=== PATIENT | female | born 1970 | race Caucasian/White ===

== ENCOUNTER 2017-05-06 12:13 | Emergency (ER) | payer BC ==
--- OUTSIDE RECORDS SUMMARY | 2017-05-06 12:18 | XMS REPORT | Clinical Summary ---
:1970 Author Organization [facility] Address [address] [place] [address] Care Team Providers Name Role Phone Anais Nelson MD Primary Care Provider Allergies No Known Allergies Current Medications Prescription Sig. Disp. Refills Start Date End Date Status metFORMIN (GLUCOPHAGE) 500 Take 500 mg by Active MG tablet mouth. pantoprazole (PROTONIX) 40 Take 40 mg by Active MG EC tablet mouth daily. methylphenidate (CONCERTA) Take 27 mg by Active 27 MG CR tablet mouth every morning. fexofenadine (RAUL) 180 Take 180 mg by Active MG tablet mouth daily. levothyroxine (SYNTHROID, Take 100 mcg by Active LEVOTHROID) 100 MCG tablet mouth every morning. fenofibrate (LOFIBRA) 160 Take 160 mg by Active MG tablet mouth daily. montelukast (SINGULAIR) 10 Take 10 mg by Active mg tablet mouth nightly. fluticasone (FLONASE) 50 2 sprays into each Active mcg/actuation nasal spray nostril daily. estradiol (VIVELLE-DOT) Place 1 patch on Active 0.1 mg/24 hr the skin. fluticasone-salmeterol Inhale 1 puff 2 Active (ADVAIR) 250-50 mcg/dose (two) times a day. DISKUS citalopram (CeleXA) 40 MG Take 40 mg by Active tablet mouth daily. pregabalin (LYRICA) 75 MG Take 75 mg by Active capsule mouth 2 (two) times a day. Prn levocetirizine (XYZAL) 5 Take 5 mg by mouth Active MG tablet every evening. Active Problems Problem Noted Date SHIVA positive 12/22/2015 Disease of thyroid gland 12/22/2015 GERD (gastroesophageal reflux disease) 12/22/2015 Family History Medical History Relation Name Comments Diabetes Father Hypertension Father Prostate cancer Father Diabetes Mother Hypertension Mother Psoriasis Mother Retinoblastoma Mother Relation Name Status Comments Father Alive Mother Alive Social History Tobacco Use Types Packs/Day Years Used Date Never Smoker Smokeless Tobacco: Never Used Alcohol Use Drinks/Week oz/Week Comments Yes Sex Assigned at Date Recorded Not on file Last Filed Vital Signs Not on file Plan of Treatment Health Maintenance Due Date Last Done Comments PAP SMEAR 1991 INFLUENZA VACCINE 09/18/2016 Results Not on fileafter 05/05/2016 Insurance Payer Benefit Plan / Group Subscriber ID Type Phone Address [facility] JAVIER HAJI xxxxxxxxxxxx PPO Work: [id number] [phone] [place], [place] [address] Home: [phone] [employer] Self 1970 Work: [id number] Liability [phone] [place], [place] [phone] Home:
[2017-05-06] MEDS ORDERED: ALBUTEROL 2.5 MG/3 ML NEB SOL ONE (16:08)
[2017-05-06] MEDS ORDERED: predniSONE 20 MG TAB ONE (16:09)
[2017-05-06] MEDS ORDERED: IPRATROPIUM BROM 0.5MG/2.5ML ONE (16:09)
[2017-05-06 16:12] LABS: Absolute Monocytes 0.7 K/uL (0.1-1.3); Absolute Neutrophil 7.6 K/uL (1.8-8.0); Basophils % 0.3 % (0-1.3); Eosinophils % 0.9 % (0-4.4); Hematocrit 35.5 % (36.0-45.0); Lymphocytes % 32.4 % (15.3-44.8); MCH 29.1 pg (27.0-35.0); MCV 90.5 fL (80-100); MPV 8.2 fL (7.6-11.3); Monocytes % 5.3 % (3.3-12.3); RBC Red Blood Cell Count 3.92 M/uL (3.86-4.86)
[2017-05-06 16:19] LABS: Potassium 3.4 mEq/L (3.6-5.0)
[2017-05-06 16:24] LABS: Protime INR 0.87
[2017-05-06 16:25] LABS: Bilirubin Direct 0.1 mg/dL (0-0.2); Bilirubin Total 0.5 mg/dL (0.3-1.2); Magnesium 1.9 mg/dL (1.8-2.5); Protein, Total 7.2 g/dL (6.0-8.3)
[2017-05-06] MEDS ORDERED: POTASSIUM 25 MEQ EFFERV TAB ONE (16:57)
[2017-05-06] MEDS ORDERED: NA CHLORIDE 0.9% 1,000 ML ONE (16:57)
--- NOTE | 2017-05-06 16:59 | RAD REPORT ---
EXAM DESCRIPTION: RAD - Chest Single View - 05/06/2017 4:53 pm CLINICAL HISTORY: Shortness of breath. COMPARISON: 06/15/2013 FINDINGS: Portable technique limits examination quality. The lungs are grossly clear. The heart is normal in size. No displaced fractures.Hardware plate is pr esent in the cervical spine. IMPRESSION: No acute intrathoracic process suspected.
--- NOTE | 2017-05-06 17:26 | ER ---
Nurse's Notes [facility] Name: Leyla Randhawa Age: 47 yrs Sex: Female : 1970 Arrival Date: 05/06/2017 Time: 12:18 Bed 30 Private MD: Diagnosis: Pneumonitis;Unspecified asthma with (acute) exacerbation;Chest pain, unspecified Presentation: 05/06 12:24 Presenting complaint: Patient states: SOB for 8 days after travelling to [place]. aj Patient reports she was sent to this ER by Dr Sanchez for admission, but no orders were sent. Seen at [place] on Saturday, CT and labs completed. Transition of care: patient was not received from another setting of care. Onset of symptoms was April 28, 2017. Care prior to arrival: None. 12:24 Method Of Arrival: Wheelchair aj 12:24 Acuity: JOSIANE 3 aj Triage Assessment: 12:30 General: Appears in no apparent distress. comfortable, Behavior is calm, cooperative, aj appropriate for age. Pain: Denies pain. Neuro: Level of Consciousness is awake, alert, obeys commands, Oriented to person, place, time, situation. Respiratory: Reports shortness of breath cough that is pain with cough Airway is patent Respiratory effort is even, unlabored, Respiratory pattern is regular, symmetrical, Onset: The symptoms/episode began/occurred gradually, the patient has mild shortness of breath. Derm: Skin is intact, is healthy with good turgor, Skin is pink, warm \T\ dry. normal. 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 - Hysterectomy aj Historical: - Allergies: 12:30 Codeine; aj 12:30 shellfish derived; aj - Home Meds: 12:30 metformin 500 mg Oral tab 1 tab 2 times per day [Active]; Dexilant 60 mg oral CpDB 1 aj cap once daily [Active]; Concerta 18 mg Oral tr24 1 tab once daily [Active]; Sosa 180 mg Oral tab 1 tab once daily [Active]; Synthroid 100 mcg Oral tab 1 tab once daily [Active]; fenofibrate 160 mg oral tab 1 tab once daily [Active]; Singulair 10 mg Oral tab 1 tab once daily [Active]; astelin [Active]; Flonase 50 mcg/actuation Nasal spsn 1 spray once daily [Active]; Advair Diskus 250-50 mcg/dose Inhl dsdv 1 puff 2 times per day [Active]; Celexa 40 mg Oral tab 1 tab once daily [Active]; Gralise oral 500 mg oral once daily [Active]; Xyzal 10 mg oral tab once daily [Active]; sucralfate 1 gram Oral tab three times a day [Active]; - PMHx: 12:30 Hypothyroidism; seasonal allergies; aj - PSHx: 12:30 Bladder suspension; rotator cuff; neck bilevel fusion; foot surgery; Hysterectomy; aj nasal sinus surgery; Cholecystectomy; Tonsillectomy; - Immunization history:: Adult Immunizations up to date. - Social history:: Smoking status: Patient/guardian denies using tobacco. Screenin:35 Abuse screen: Denies threats or abuse. Nutritional screening: No deficits noted. rk2 Tuberculosis screening: No symptoms or risk factors identified. Fall Risk None identified. Assessment: 15:36 General: Appears in no apparent distress. obese, well groomed, well developed, well rk2 nourished, Behavior is calm, cooperative. Pain:. Neuro: Level of Consciousness is alert, obeys commands, Oriented to person, place. Cardiovascular: Rhythm is sinus rhythm. Respiratory: Reports cough that is Airway is patent Respiratory effort is even, unlabored, Respiratory pattern is regular, symmetrical, Breath sounds are clear bilaterally. Derm: Skin is pink, warm \T\ dry. 16:54 Reassessment: Pt. resting in room, \T\ bedside... Iv fluids infusing. Pt. given rk2 blanket. Appears to be in no obvious distress. No other needs voiced. Vital Signs: 12:31 BP 124 / 72; Pulse 76; Resp 21; Temp 97.8; Pulse Ox 99% on R/A; Weight 119.29 kg; aj Height 5 ft. 5 in. (165.10 cm); Pain 0/10; 15:35 BP 144 / 87; Pulse 92; Resp 17; Pulse Ox 100% on R/A; rk2 16:30 BP 139 / 74; Pulse 87; Resp 17; Pulse Ox 100% on R/A; rk2 17:00 BP 140 / 78; Pulse 85; Resp 17; Pulse Ox 100% on R/A; rk2 12:31 Body Mass Index 43.77 (119.29 kg, 165.10 cm) ED Course: 12:18 Patient arrived in ED. sb2 12:25 Triage completed. aj 12:31 Arm band placed on left wrist. Patient placed in waiting room, Patient notified of wait aj time. 15:07 Isaias Gomez NP is PHCP. pm1 15:07 Rajeev Barnes MD is Attending Physician. pm1 15:18 Radha Che, ROSEMARY is Primary Nurse. rk2 15:35 Patient has correct armband on for positive identification. Placed in gown. Bed in low rk2 position. Call light in reach. athletic monitor on. Pulse ox on. 15:40 Initial lab(s) drawn, by me, sent to lab. Flu and/or RSV swab sent to lab. Inserted dh3 saline lock: 22 gauge in right forearm, using aseptic technique. Blood collected. 15:50 EKG done, by biodiesel production technician. reviewed by Isaias Gomez NP. vh 16:06 X-ray completed. Portable x-ray completed in exam room. Patient tolerated procedure mh1 well. 17:22 Sam Sanchez MD is Referral Physician. pm1 18:09 No provider procedures requiring assistance completed. IV discontinued. rk2 Administered Medications: 15:55 Drug: predniSONE 60 mg Route: PO; rk2 15:56 Drug: Albuterol - atroVENT (3:1) (2.5 mg - 0.5 mg) 3 ml Route: Nebulizer; rk2 16:44 Drug: NS 0.9% 1000 ml Route: IV; Rate: 1000 ml; Site: right forearm; rk2 17:35 Follow up: Response: No adverse reaction; IV Status: Completed infusion; IV Intake: rk2 1000ml 16:44 Drug: Potassium Effervescent Tablet 50 mEq Route: PO; rk2 17:21 Follow up: Response: No adverse reaction rk2 17:35 Follow up: Response: No adverse reaction rk2 17:29 Drug: Rocephin 1 grams Route: IV; Rate: calculated rate; Site: right forearm; rk2 17:35 Follow up: Response: No adverse reaction; IV Status: Completed infusion; IV Intake: [id number] Intake: 17:35 IV: 10ml; Total: 10ml. rk2 17:35 IV: 1000ml; Total: 1010ml. rk2 Outcome: 17:25 Discharge ordered by . pm1 18:09 Discharged to 2 18:09 Condition: good 18:09 Discharge instructions given to patient, Prescriptions given X 3. 18:10 Patient left the ED. 2 Signatures: Claudia Bailey RN RN Jenny Harris 1 Maribel Goyal Patrick, RAMY CORPORATE TAX PREPARER pm1 Isamar Souza 3 Radha Che RN RN rk2 Yessica Jean 2 Corrections: (The following items were deleted from the chart) 12:31 12:24 Presenting complaint: Patient states: SOB for 8 days after travelling to [facility]. Patient reports she was sent to this ER by Dr Sanchez for admission, but no orders were sent aj
--- NOTE | 2017-05-06 17:26 | EDPHYS ---
Physician Documentation [facility] Name: Leyla Randhawa Age: 47 yrs Sex: Female : 1970 Arrival Date: 05/06/2017 Time: 12:18 Bed 30 Private MD: ED Physician Rajeev Barnes HPI: 05/06 16:30 This 47 yrs old Female presents to ER via Wheelchair with complaints of pm1 Shortness Of Breath. 16:30 The patient has shortness of breath at rest. Onset: The symptoms/episode began/occurred pm1 8 day(s) ago. Duration: The symptoms are continuous. 16:30 Associated signs and symptoms: Pertinent positives: non-productive cough, Chest pain pm1 last night. No chest pain present today. Subjective fever last night, Pertinent negatives: dizziness, nausea, vomiting. Severity of symptoms: in the emergency department the symptoms have improved Chest pain resolved and shortness of breath improved. The patient has experienced similar episodes in the past, several times. The patient has been recently seen by a physician: with similar presenting complaints, patient was seen at [place] ER on Saturday and was given a prescription for prednisone 50 mg PO daily for 10 days and albuterol. Patient with labs performed and CT chest. CT chest - no pulmonary embolism present. CT impression pneumonitis versus edema. Patient's BNP wnls. Patient with onset of shortness of breath after stepping out of the car on a trip to [place]. Patient with a history of asthma that usually presents itself as a cough with shortness of breath. Patient was seen at [place] ER on Saturday and worked up to rule out PE. Discharged with the following medications: prednisone 50mg PO daily for 10 days and albuterol. Patient reports symptoms did not improve and she experienced chest pain last night with subjective fever. 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 - Hysterectomy aj Historical: - Allergies: 12:30 Codeine; aj 12:30 shellfish derived; aj - Home Meds: 12:30 metformin 500 mg Oral tab 1 tab 2 times per day [Active]; Dexilant 60 mg oral CpDB 1 aj cap once daily [Active]; Concerta 18 mg Oral tr24 1 tab once daily [Active]; Sosa 180 mg Oral tab 1 tab once daily [Active]; Synthroid 100 mcg Oral tab 1 tab once daily [Active]; fenofibrate 160 mg oral tab 1 tab once daily [Active]; Singulair 10 mg Oral tab 1 tab once daily [Active]; astelin [Active]; Flonase 50 mcg/actuation Nasal spsn 1 spray once daily [Active]; Advair Diskus 250-50 mcg/dose Inhl dsdv 1 puff 2 times per day [Active]; Celexa 40 mg Oral tab 1 tab once daily [Active]; Gralise oral 500 mg oral once daily [Active]; Xyzal 10 mg oral tab once daily [Active]; sucralfate 1 gram Oral tab three times a day [Active]; - PMHx: 12:30 Hypothyroidism; seasonal allergies; aj - PSHx: 12:30 Bladder suspension; rotator cuff; neck bilevel fusion; foot surgery; Hysterectomy; aj nasal sinus surgery; Cholecystectomy; Tonsillectomy; - Immunization history:: Adult Immunizations up to date. - Social history:: Smoking status: Patient/guardian denies using tobacco. ROS: 16:30 Eyes: Negative for injury, pain, redness, and discharge, ENT: Negative for injury, pm1 pain, and discharge, Neck: Negative for injury, pain, and swelling. 16:30 Abdomen/GI: Negative for abdominal pain, nausea, vomiting, diarrhea, and constipation, Back: Negative for injury and pain, : Negative for injury, bleeding, discharge, and swelling, MS/Extremity: Negative for injury and deformity, Skin: Negative for injury, rash, and discoloration, Neuro: Negative for headache, weakness, numbness, tingling, and seizure. 16:30 Constitutional: Positive for subjective fever, Negative for body aches. 16:30 Cardiovascular: Positive for Chest pain last night, Negative for edema, palpitations. 16:30 Respiratory: Positive for cough, shortness of breath, Negative for sputum production. Exam: 16:30 Constitutional: This is a well developed, well nourished patient who is awake, alert, pm1 and in no acute distress. 18:29 Head/Face: Normocephalic, atraumatic. Eyes: Pupils equal round and reactive to light, pm1 extra-ocular motions intact. Lids and lashes normal. Conjunctiva and sclera are non-icteric and not injected. Cornea within normal limits. Periorbital areas with no swelling, redness, or edema. ENT: Nares patent. No nasal discharge, no septal abnormalities noted. Tympanic membranes are normal and external auditory canals are clear. Oropharynx with no redness, swelling, or masses, exudates, or evidence of obstruction, uvula midline. Mucous membranes moist. Neck: Trachea midline, no thyromegaly or masses palpated, and no cervical lymphadenopathy. Supple, full range of motion without nuchal rigidity, or vertebral point tenderness. No Meningismus. Chest/axilla: Normal chest wall appearance and motion. Nontender with no deformity. No lesions are appreciated. Cardiovascular: Regular rate and rhythm with a normal S1 and S2. No gallops, murmurs, or rubs. No pulse deficits. Respiratory: Lungs have equal breath sounds bilaterally, clear to auscultation and percussion. No rales, rhonchi or wheezes noted. No increased work of breathing, no retractions or nasal flaring. Abdomen/GI: Soft, non-tender, with normal bowel sounds. No distension or tympany. No guarding or rebound. No evidence of tenderness throughout. Back: No spinal tenderness. No costovertebral tenderness. Full range of motion. Skin: Warm, dry with normal turgor. Normal color with no rashes, no lesions, and no evidence of cellulitis. MS/ Extremity: Pulses equal, no cyanosis. Neurovascular intact. Full, normal range of motion. 18:29 Neuro: Orientation: is normal, Motor: is normal, moves all fours, strength is normal. Vital Signs: 12:31 BP 124 / 72; Pulse 76; Resp 21; Temp 97.8; Pulse Ox 99% on R/A; Weight 119.29 kg; aj Height 5 ft. 5 in. (165.10 cm); Pain 0/10; 15:35 BP 144 / 87; Pulse 92; Resp 17; Pulse Ox 100% on R/A; rk2 16:30 BP 139 / 74; Pulse 87; Resp 17; Pulse Ox 100% on R/A; rk2 17:00 BP 140 / 78; Pulse 85; Resp 17; Pulse Ox 100% on R/A; rk2 12:31 Body Mass Index 43.77 (119.29 kg, 165.10 cm) aj MDM: 15:08 Patient medically screened. pm1 17:20 Data reviewed: vital signs. Data interpreted: Pulse oximetry: on room air is 100 %. pm1 Interpretation: normal. Counseling: I had a detailed discussion with the patient and/or guardian regarding: the historical points, exam findings, and any diagnostic results supporting the discharge/admit diagnosis, lab results, radiology results, the need for outpatient follow up, to return to the emergency department if symptoms worsen or persist or if there are any questions or concerns that arise at home. 17:30 ED course: Impression likely asthma exacerbation due to environment exposure in [address] and pneumonitis based on CT from [place]. Patient with normal chest xray here. Slightly elevated WBC that is likely due to patient taking prednisone since Saturday. patient without chest pain today that started yesterday and negative troponin on Saturday and today. Will discharge patient home with abx and recommended 5 day course of steroids. Patient requested medications for anxiety with her asthma exacerbations. patient has taken Xanax in the past for anxiety. Will give patient some Valium and recommended follow up with supervisor denture department and PCP. 05/06 15:23 Order name: Basic Metabolic Panel pm05/06 15:23 Order name: BNP pm05/06 15:23 Order name: CBC with Diff pm05/06 15:23 Order name: LFT's pm05/06 15:23 Order name: Magnesium pm05/06 15:23 Order name: PT-INR pm05/06 15:23 Order name: Ptt, Activated pm05/06 15:23 Order name: Troponin (emerg Dept Use Only) pm05/06 15:23 Order name: Flu pm05/06 16:11 Order name: Influenza Screen (A ; Complete Time: 16:19 EDMS 05/06 16:19 Order name: Basic Metabolic Panel EDMI 05/06 16:25 Order name: CBC with Automated Diff; Complete Time: 16:27 EDMS 05/06 16:25 Order name: Protime (+INR); Complete Time: 16:27 EDMI 05/06 16:25 Order name: PTT, Activated Partial Thromb; Complete Time: 16:27 EDMI 05/06 15:23 Order name: Urine Test (obtain specimen) pm05/06 15:23 Order name: XRAY Chest (1 view) pm05/06 15:23 Order name: EKG; Complete Time: 15:25 pm05/06 15:23 Order name: Cardiac monitoring; Complete Time: 15:33 pm1 05/06 15:23 Order name: EKG - Nurse/Tech; Complete Time: 15:49 pm1 05/06 15:23 Order name: IV Saline Lock; Complete Time: 15:49 pm1 05/06 16:25 Order name: Troponin (Emerg Dept Use Only); Complete Time: 16:27 EDMI 05/06 16:26 Order name: Liver (Hepatic) Function EDMI 05/06 16:26 Order name: Magnesium EDMI 05/06 16:28 Order name: BNP B-Type Natriuretic Peptide; Complete Time: 16:28 EDMS 05/06 16:59 Order name: RAD; Complete Time: 17:05 EDMI 05/06 15:23 Order name: Labs collected and sent; Complete Time: 15:50 pm1 05/06 15:23 Order name: O2 Per Protocol; Complete Time: 15:33 pm1 05/06 15:23 Order name: O2 Sat Monitoring; Complete Time: 15:33 pm1 05/06 15:23 Order name: Urine Dipstick-Ancillary (obtain specimen) pm1 Administered Medications: 15:55 Drug: predniSONE 60 mg Route: PO; rk2 15:56 Drug: Albuterol - atroVENT (3:1) (2.5 mg - 0.5 mg) 3 ml Route: Nebulizer; rk2 16:44 Drug: NS 0.9% 1000 ml Route: IV; Rate: 1000 ml; Site: right forearm; rk2 17:35 Follow up: Response: No adverse reaction; IV Status: Completed infusion; IV Intake: rk2 1000ml 16:44 Drug: Potassium Effervescent Tablet 50 mEq Route: PO; rk2 17:21 Follow up: Response: No adverse reaction rk2 17:35 Follow up: Response: No adverse reaction rk2 17:29 Drug: Rocephin 1 grams Route: IV; Rate: calculated rate; Site: right forearm; rk2 17:35 Follow up: Response: No adverse reaction; IV Status: Completed infusion; IV Intake: [id number] Disposition: 18:17 Co-signature as Attending Physician, Rajeev Barnes MD. rn Disposition: 05/06/17 17:25 Discharged to Home. Impression: Pneumonitis, Unspecified asthma with (acute) exacerbation, Chest pain, unspecified. - Condition is Stable. - Discharge Instructions: Asthma, Adult, Nonspecific Chest Pain, Pneumonitis. - Prescriptions for Zofran 4 mg Oral Tablet - take 1 tablet by ORAL route every 8 hours As needed; 10 tablet. Zithromax Z- Alen 250 mg Oral Tablet - take 1 tablet by ORAL route as directed for 5 days Day 1 - take two (2) tablets one time. Day 2, 3, 4 , 5 take one (1) tablet once daily.; 6 tablet. Valium 2 mg Oral Tablet - take 1 tablet by ORAL route every 8 hours As needed; 6 tablet. - Medication Reconciliation Form, Thank You Letter, Antibiotic Education form. - Follow up: Emergency Department; When: As needed; Reason: Worsening of condition. Follow up: Private Physician; When: 2 - 3 days; Reason: Recheck today's complaints, Continuance of care, Re-evaluation by your physician. Follow up: Sam Sanchez MD; When: 2 - 3 days; Reason: Recheck today's complaints, Continuance of care, Re-evaluation by your physician. - Problem is new. - Symptoms have improved. Signatures: Dispatcher [employer] EDClaudia Nair, RN RN Rajeev Mathew MD MD rn Marinas, Patrick, RAMY FILTER BED PLACER pm1 Radha Che RN RN rk2
[2017-05-06] MEDS ORDERED: CEFTRIAXONE/SWI 1gm 1 GM/10 ML SYR ONE (17:40)
[2017-05-06 18:14] VITALS: TEMP 97.8
[2017-05-06 18:15] VITALS: O2SAT 100
[2017-05-06 18:18] VITALS: BP 140/78
--- NOTE | 2017-05-06 21:45 | EKG ---
Test Date: 2017-05-06 Test Time: 15:41:39 Nut Roaster: KWAME MEASUREMENT RESULTS: Intervals: Rate: 67 MT: 132 QRSD: 102 QT: 434 QTc: 458 Reagan: P: 57 MT: 132 QRS: 60 T: 59 INTERPRETIVE STATEMENTS: Normal sinus rhythm Nonspecific T wave abnormality Abnormal ECG Compared to ECG 04/29/2015 08:29:00 T-wave abnormality now present Electronically Signed On 05-06-17 21:44:58 CDT by Gabe Marrufo
== END 2017-05-06 18:10 | disposition home or self-care (01) ==
LOC: ER 12:13
DX: J18.9 Pneumonia, unspecified organism (principal); J45.901 Unspecified asthma with (acute) exacerbation; R07.9 Chest pain, unspecified; E03.9 Hypothyroidism, unspecified; Z88.5 Allergy status to narcotic agent; Z91.013 Allergy to seafood
CPT/HCPCS: 36415; 71045; 80048; 80076; 83735; 83880; 84484; 85025; 85610; 85730; 87804; 93005; 94640; 96361; 96374; 99285; J0696; J7030; J7512

== ENCOUNTER → 2023-04-26 | Emergency (ER) | payer OTHER ==
[~2023-04-26] MED LIST: MECLIZINE HCL 12.5 MG TAB ONE
--- NOTE | 2023-04-26 15:58 | RAD REPORT ---
EXAM DESCRIPTION: RAD - Chest Single View - 04/26/2023 3:42 pm CLINICAL HISTORY: dizzines COMPARISON: Chest Pa And Lat (2 Views) dated 10/25/2021; Chest Pa And Lat (2 Views) dated 06/16/2018; C hest Pa And Lat (2 Views) dated 05/20/2017; Chest Pa And Lat (2 Views) dated 05/14/2017 FINDINGS: Lines: None. Lungs: No evidence of edema or pneumonia. Pleural: No significant pleural effusions or pneumothorax. Cardiac: The heart size is within normal limits. Mediastinum: Within normal limits. Bones: No acute fractures. ACDF in the cervical spine . Other: None IMPRESSION: No acute cardiopulmonary disease.
[2023-04-26 16:02] LABS: Absolute Basophils 0.1 K/uL (0-0.5); Absolute Lymphocytes (CBC) 1.7 K/uL (0.7-4.9); Basophils % 1.8 % (0-1.3); Hematocrit 31.8 % (36.0-45.0); Lymphocytes % 33.1 % (15.3-44.8); MCV 93.1 fL (80-100); MPV 7.4 fL (7.6-11.3); Platelets 472 thou/uL (152-406); RBC Red Blood Cell Count 3.41 M/uL (3.86-4.86)
[2023-04-26 16:18] LABS: Anion Gap 6.1 mEq/L (5.0-15.0); BUN Blood Urea Nitrogen 20 mg/dL (7-18); Bicarbonate 28 mEq/L (21-32); Glucose Level 96 mg/dL (74-106); Potassium 4.1 mEq/L (3.5-5.1); Sodium Level 140 mEq/L (136-145)
[2023-04-26 16:19] LABS: Glomerular Filtration Rate 100 ml/min (=/>90)
[2023-04-26 16:24] LABS: Troponin High Sensitivity < 3.0 pg/mL (<58.9)
--- NOTE | 2023-04-26 16:40 | EDPHYS ---
Physician Documentation [facility] Name: Leyla Randhawa Age: 53 yrs Sex: Female : 1970 Arrival Date: 04/26/2023 Time: 14:50 Bed 15 Private MD: ED Physician Mariusz Jackson HPI: 04/25 15:28 This 53 yrs old Female presents to ER via Unassigned with complaints of General ms3 Weakness, Dizziness. 15:28 53-year-old female with past medical history of diabetes, hypothyroidism, ms3 hyperlipidemia, GERD, atrial flutter, anxiety presents to the emergency department for dizziness that has been ongoing for 1 week. Patient states her symptoms have become worse over the last 2 days. Patient noted her blood glucose level to be in the 50s in the morning. Patient denies pain. Patient endorses nausea. Patient denies vomiting. Historical: - Allergies: 15:41 Codeine; nj1 15:41 shellfish derived; nj1 - PMHx: 15:41 Hypothyroidism; seasonal allergies; Hypoglycemic (Unknown); nj1 - PSHx: 15:41 Hip replacement, right (April 09, 2023); nj1 - Immunization history:: Client reports receiving the 2nd dose of the Covid vaccine. - Social history:: Smoking status: Patient denies any tobacco usage or history of. ROS: 15:28 Constitutional: Negative for fever, and chills. Neck: Negative for injury, pain, and ms3 swelling, Cardiovascular: Negative for chest pain, and palpitations. Respiratory: Negative for shortness of breath, cough, wheezing, and pleuritic chest pain, Abdomen/GI: Negative for abdominal pain, nausea, vomiting, diarrhea, and constipation, MS/Extremity: Negative for injury and deformity, 15:28 Neuro: Positive for dizziness, 15:28 All other systems are negative, Exam: 15:28 Constitutional: This is a well developed, well nourished patient who is awake, alert, ms3 and in no acute distress. Head/Face: Normocephalic, atraumatic. Neck: Trachea midline, no cervical lymphadenopathy. Supple, full range of motion without nuchal rigidity, or vertebral point tenderness. No Meningismus. Chest/axilla: Normal chest wall appearance and motion. Nontender with no deformity. Cardiovascular: Regular rate and rhythm with a normal S1 and S2. No gallops, murmurs, or rubs. Normal PMI, no JVD. No pulse deficits. Respiratory: Lungs have equal breath sounds bilaterally, clear to auscultation and percussion. No rales, rhonchi or wheezes noted. No increased work of breathing, no retractions or nasal flaring. Abdomen/GI: Soft, non-tender, with normal bowel sounds. No distension or tympany. No guarding or rebound. No evidence of tenderness throughout. Skin: Warm, dry with normal turgor. Normal color with no rashes, no lesions, and no evidence of cellulitis. MS/ Extremity: Pulses equal, no cyanosis. Neurovascular intact. Full, normal range of motion. 15:28 Neuro: Orientation: is normal, to person, place, time \T\ situation. Mentation: is normal, Cranial nerves: CN I not tested, CN II- XII are normal as tested, Cerebellar function: is grossly normal, normal finger to nose testing, Motor: is normal, Sensation: is normal, no obvious gross deficits, 16:32 ECG was reviewed by the Attending Physician. ms3 Vital Signs: 15:30 BP 122 / 65; Pulse 61; Resp 18; Temp 98.1(O); Pulse Ox 100% on R/A; nj1 MDM: 15:16 Patient medically screened. ms3 15:28 Differential diagnosis: cardiac arrhythmia, hypovolemia, idiopathic dizziness, vertigo. ms3 16:39 Data reviewed: vital signs, nurses notes, lab test result(s), EKG, radiologic studies, ms3 and as a result, I will discharge patient. I considered the following discharge prescriptions or medication management in the emergency department Medications were administered in the Emergency Department. See MAR. Historians other than the Patient: Spouse/Significant Other: Patient's . Counseling: I had a detailed discussion with the patient and/or guardian regarding the historical points, exam findings, and any diagnostic results supporting the discharge/admit diagnosis, lab results, radiology results, the need for outpatient follow up, to return to the emergency department if symptoms worsen or persist or if there are any questions or concerns that arise at home. Special discussion: I discussed with the patient/guardian in detail that at this point there is no indication for admission to the hospital. It is understood, however, that if the symptoms persist or worsen the patient needs to return immediately for re-evaluation. ED course: Discussed labs, EKG, imaging with patient and her . Patient to follow-up with primary care physician in 2 to 3 days. Patient understands and agrees with plan. All questions were answered. Return precautions discussed include worsening symptoms, or any other concerns. On reevaluation patient improved, alert and orient x 4, no apparent distress, nontoxic-appearing, ambulatory emergency department. 04/25 15:17 Order name: Basic Metabolic Panel; Complete Time: 16:26 ms3 04/25 15:17 Order name: CBC with Diff; Complete Time: 16:26 ms3 04/25 15:17 Order name: Troponin HS; Complete Time: 16:26 ms3 04/25 15:17 Order name: XRAY Chest (1 view); Complete Time: 15:59 ms3 04/25 15:17 Order name: EKG; Complete Time: 15:18 ms3 04/25 15:17 Order name: Cardiac monitoring; Complete Time: 15:52 ms3 04/25 15:17 Order name: EKG - Nurse/Tech; Complete Time: 15:52 ms3 04/25 15:17 Order name: IV Saline Lock; Complete Time: 15:52 ms3 04/25 15:17 Order name: Labs collected and sent; Complete Time: 15:52 ms3 04/25 15:17 Order name: O2 Per Protocol; Complete Time: 15:52 ms3 04/25 15:17 Order name: O2 Sat Monitoring; Complete Time: 15:52 ms3 EC:32 Rate is 63 beats/min. Rhythm is regular. QRS [place] is Normal. [place] interval is normal. QRS ms3 interval is normal. Clinical impression: Normal ECG. Interpreted by me. Reviewed by me. Administered Medications: 15:52 Drug: Meclizine PO 50 mg PO once Route: PO; kc6 17:08 Follow up: Response: No adverse reaction kc6 Disposition Summary: 04/26/23 16:39 Discharge Ordered Notes: Location: Home ms3 Condition: Stable ms3 Diagnosis - Dizziness and giddiness ms3 Followup: ms3 - With: Abiodun Echevarria, DO - When: 2 - 3 days - Reason: Recheck today's complaints Discharge Instructions: - Discharge Summary Sheet ms3 - Dizziness ms3 Forms: - Medication Reconciliation Form ms3 - Thank You Letter ms3 - Antibiotic Education ms3 - Prescription Opioid Use ms3 - Patient Portal Instructions ms3 - Leadership Thank You Letter ms3 Prescriptions: - Meclizine 25 mg Oral Tablet - take 1 tablet ORAL route every 8 hours As needed; 30 tablet; Refills: 0, ms3 Product Selection Permitted Signatures: Dispatcher [employer] EDMariusz Rocha DO DO ms3 Evelin Bauer RN RN kc6 Olivia Valdes RN RN nj1
--- NOTE | 2023-04-26 16:40 | ER ---
Nurse's Notes [facility] Name: Leyla Randhawa Age: 53 yrs Sex: Female : 1970 Arrival Date: 04/26/2023 Time: 14:50 Bed 15 Private MD: Diagnosis: Dizziness and giddiness Presentation: 04/25 15:30 Chief complaint: Patient states: Dizziness for a week, has gotten worse the past 2 nj1 days. Advised to come to ED by physician, had right hip replacement Apr 09. 15:30 Coronavirus screen: Vaccine status: Patient reports receiving the 2nd dose of the covid nj1 vaccine. Ebola Screen: Patient denies travel to an Ebola-affected area in the 21 days before illness onset. Initial Sepsis Screen: Does the patient meet any 2 criteria? No. Patient's initial sepsis screen is negative. Does the patient have a suspected source of infection? No. Patient's initial sepsis screen is negative. Risk Assessment: Do you want to hurt yourself or someone else? Patient reports no desire to harm self or others. Onset of symptoms was April 2023. 15:30 Method Of Arrival: Wheelchair nj1 15:30 Acuity: JOSIANE 3 nj1 Historical: - Allergies: 15:41 Codeine; nj1 15:41 shellfish derived; nj1 - PMHx: 15:41 Hypothyroidism; seasonal allergies; Hypoglycemic (Unknown); nj1 - PSHx: 15:41 Hip replacement, right (April 09, 2023); nj1 - Immunization history:: Client reports receiving the 2nd dose of the Covid vaccine. - Social history:: Smoking status: Patient denies any tobacco usage or history of. Screenin:52 [facility] ED Fall Risk Assessment (Adult) History of falling in the last 3 months, kc6 including since admission No falls in past 3 months (0 pts) Confusion or Disorientation No (0 pts) Intoxicated or Sedated No (0 pts) Impaired Gait No (0 pts) Mobility Assist Device Used No (0 pt) Altered Elimination No (0 pt) Score/Fall Risk Level 0 - 2 = Low Risk. Abuse screen: Denies threats or abuse. Denies injuries from another. Nutritional screening: No deficits noted. Tuberculosis screening: No symptoms or risk factors identified. Assessment: 15:53 General: Appears in no apparent distress. comfortable, well groomed, well developed, kc6 Behavior is calm, cooperative, appropriate for age. Pain: Denies pain. Neuro: Level of Consciousness is awake, alert, obeys commands, Oriented to person, place, time, situation, Appropriate for age Reports dizziness, weakness. Cardiovascular: Capillary refill < 3 seconds. Respiratory: Airway is patent Trachea midline Respiratory effort is even, unlabored, Respiratory pattern is regular, symmetrical, Denies shortness of breath. GI: No signs and/or symptoms were reported involving the gastrointestinal system. : No signs and/or symptoms were reported regarding the genitourinary system. EENT: No signs and/or symptoms were reported regarding the EENT system. Derm: No signs and/or symptoms reported regarding the dermatologic system. Skin is intact, is healthy with good turgor, Skin is pink, warm \T\ dry. Musculoskeletal: No signs and/or symptoms reported regarding the musculoskeletal system. Circulation, motion, and sensation intact. Capillary refill < 3 seconds, Range of motion: intact in all extremities. 16:53 Reassessment: Patient appears in no apparent distress at this time. No changes from kc6 previously documented assessment. Patient and/or family updated on plan of care and expected duration. Pain level reassessed. Patient is alert, oriented x 3, equal unlabored respirations, skin warm/dry/pink. Vital Signs: 15:30 BP 122 / 65; Pulse 61; Resp 18; Temp 98.1(O); Pulse Ox 100% on R/A; nj1 ED Course: 14:54 Patient arrived in ED. rg4 14:58 Mariusz Jackson DO is Attending Physician. ms3 15:28 Evelin Bauer, RN is Primary Nurse. kc6 15:34 EKG done, by ED staff, reviewed by Mariusz Jackson DO. hb 15:41 Triage completed. nj1 15:42 Arm band placed on. nj1 15:43 XRAY Chest (1 view) In Process Unspecified. EDMS 15:52 Inserted saline lock: 20 gauge in right antecubital area, using aseptic technique. kc6 Blood collected. Patient maintains SpO2 saturation greater than 95% on room air. 15:53 Patient has correct armband on for positive identification. Bed in low position. Call kc6 light in reach. Side rails up X2. Adult w/ patient. Client placed on continuous cardiac and pulse oximetry monitoring. NIBP monitoring applied. 15:54 patient monitor on. Pulse ox on. NIBP on. hb 16:39 Abiodun Echevarria DO is Referral Physician. ms3 17:07 No provider procedures requiring assistance completed. IV discontinued, intact, kc6 bleeding controlled, No redness/swelling at site. Pressure dressing applied. Administered Medications: 15:52 Drug: Meclizine PO 50 mg PO once Route: PO; kc6 17:08 Follow up: Response: No adverse reaction kc6 Medication: 17:07 VIS not applicable for this client. kc6 Outcome: 16:39 Discharge ordered by MD. ms3 17:07 Discharged to home via wheelchair, with significant other, kc6 17:07 Condition: improved 17:07 Discharge instructions given to patient, significant other, Instructed on discharge instructions, follow up and referral plans. medication usage, Demonstrated understanding of instructions, follow-up care, medications, Prescriptions given X 1, 17:08 Patient left the ED. kc6 Signatures: Dispatcher [employer] EDMS Siri Traore, RN Sneha Olea4 Mariusz Jackson DO DO ms3 Evelin Bauer, RN RN kc6 Olivia Valdes RN RN nj1
[2023-04-26 17:32] VITALS: BP 122/65; TEMP 98.1; O2SAT 100
== END ==
LOC: ER 14:50
DX: R42 Dizziness and giddiness (principal); R53.1 Weakness; E11.9 Type 2 diabetes mellitus without complications; E03.9 Hypothyroidism, unspecified; Z96.641 Presence of right artificial hip joint
CPT/HCPCS: 85025; 80048; 36415; 84484; 71045; 99285; J8597

== ENCOUNTER → 2024-01-08 | Day surgery (SDC) | payer OTHER ==
--- NOTE | 2024-01-08 10:30 | RAD REPORT ---
EXAMINATION: ULTRASOUND GUIDED VACUUM-ASSISTED LEFT BREAST CORE NEEDLE BIOPSY LEFT breast core needle biopsy; percutaneous, using ultrasound guidance. Image guided placement, metallic localization clip, percutaneous. Post Bx mammogram: None CLINICAL INDICATION:. N63.20 INFORMED CONSENT: The risks, benefits, alternatives, and potential complications of ultrasound guided vacuum-assisted LEFT breast biopsy were discussed with the patient. An informed consent sheet was signed. The risks include but are not limited to the following: bleeding, infection, vascular injury, organ injury, pneumothorax, allergic reaction, and the need for emergent surgery/procedures. BIOPSY TARGET: LEFT breast, Lateral approach. 9-10 mm hypoechoic lesion 1:00 position periareolar loc ation. NEEDLE: 12 gauge Celero vacuum-assisted core biopsy needle, 2 cores. SEDATION: None. COMPLICATIONS: None. TECHNIQUE: Appropriate audible time out was performed. The skin was prepped and draped in the normal fashion. The soft tissues were anesthetized with lidocaine. Utilizing real-time ultrasound guidance, a vacuum-assisted core biopsy needle was placed into the breast location described below wi th removal of tissue for pathology evaluation. Metallic clip was placed within the biopsied lesion under ultrasound guidance. Compression was held. Hemostasis was achieved. Sterile dressing was applie d. Patient tolerated the procedure well without immediate complication. The technologist was in the room with the radiologist throughout the procedure. IMPRESSION: 1.Successful ultrasound guided vacuum-assisted core biopsy of the LEFT breast as described above. 2. Biopsy clip placed within the biopsied lesion.
== END ==
LOC: DS 08:00
PROVIDERS: ATTEND Nurse Practitioner Women's Health
DX: N60.82 Other benign mammary dysplasias of left breast (principal)
CPT/HCPCS: 19083; 88305